=== PATIENT | female | born 1965 | race Caucasian/White ===

== ENCOUNTER → 2019-09-18 12:38 | Outpatient (CLI) | payer OTHER, SELFPAY ==
--- NOTE | ~2019-09-18 | XR_ITS ---
XR abdomen/kub 1V 09/18/2019 13:20 Indication: Kidney stones Procedure: KUB Comparison: 08/29/2019 Findings: Large amount of retained fecal material in the colon limits evaluation for renal stones. No definite renal tone is identified. There are calcifications in the right pelvis suspicious for dista l ureteral or bladder stones. Mild lumbar spondylosis. No acute osseous abnormality. Impression: 1: New calcifications in the right pelvis, suspicious for distal ureteral or bladder stones. Consider correlation with CT. Reviewed, dictated and finalized at location A. . [employer]RO[employer] PROC[employer]OR Impression: 1: New calcifications in the right pelvis, suspicious for distal ureteral or bl adder stones. Consider correlation with CT.
== END ==
PROVIDERS: PCP Family Medicine; Visit Provider Urology
DX: N20.0 Calculus of kidney (principal)
CPT/HCPCS: 74018

== ENCOUNTER → 2019-10-09 17:10 | Outpatient (CLI) | payer OTHER, SELFPAY ==
--- NOTE | ~2019-10-09 | XR_ITS ---
XR abdomen/kub 1V 10/09/2019 17:55 Indication: Right ureteral stone Procedure: KUB Comparison: Comparison to multiple prior studies sequentially, with oldest reviewed study dated 10/2013. Findings: Bowel gas pattern is nonobstructive. Moderate colonic fecal loading. No acute osseous abnor mality. No calcifications are identified to suggest renal/ureteral stone. Impression: 1: No evidence for renal/ureteral stone. Reviewed, dictated and finalized at location A. ATAL SPECIALIST Impression: 1: No evidence for renal/ureteral stone.
== END ==
PROVIDERS: Visit Provider Nurse Practitioner Adult Health
DX: N20.1 Calculus of ureter (principal)
CPT/HCPCS: 74018

== ENCOUNTER → 2020-04-09 11:03 | Outpatient (CLI) | payer OTHER, SELFPAY ==
--- NOTE | ~2020-04-09 | XR_ITS ---
EXAMINATION: XR abdomen/kub 1V INDICATION: Right ureteral stone TECHNIQUE: Supine views of the abdomen were obtained on 2 radiographs. COMPARISON: 10/09/2019 FINDINGS: No urolithiasis is identified. The bowel gas pattern is normal. There is mild osteoarthriti s of the hips. IMPRESSION: 1. No urolithiasis identified. Reviewed, dictated and finalized at location A.
== END ==
PROVIDERS: PCP Family Medicine; Visit Provider Nurse Practitioner Adult Health
DX: N20.1 Calculus of ureter (principal)
CPT/HCPCS: 74018

== ENCOUNTER 2021-05-15 13:56 | Emergency (ER) | payer OTHER, SELFPAY ==
--- NOTE | ~2021-05-15 | XR_ITS ---
EXAMINATION: XR ankle RT min 3V EXAM DATE: 05/15/2021 14:17 INDICATION: Fall right lateral ankle pain/swelling. Initial encounter. TECHNIQUE: Right ankle frontal, lateral and oblique projections obtained and reviewed. There is no p rior study for comparison. FINDINGS: The right ankle mortise appears intact. There are no acute fractures or dislocations iden tified. There is no subcutaneous gas. There is an ankle joint effusion. There are no radiopaque fo reign bodies. IMPRESSION: Right ankle joint effusion. Reviewed, dictated and finalized at location A. IMPRESSION: Right ankle joint effusion.
[2021-05-15 14:04] VITALS: BP 109/66; PULSE 84; RESP 16; TEMP 37; O2SAT 99
--- NOTE | 2021-05-15 14:19 | ED.GENADULT ---
HPI - General Adult General Chief complaint: Extremity Injury, Lower Stated complaint: rt ankle injury Time Seen by Provider: 05/15/21 14:19 Source: patient Mode of arrival: ambulatory Limitations: no limitations History of Present Illness HPI narrative: 55-year-old female patient presents to the [facility] with complaints of right ankle pain. Patient states she tripped down some steps yesterday afternoon. Patient states she has been having pain on the lateral side of her right ankle. Patient states she has been elevating it, icing it and taking Tylenol for pain. Denies wrapping it. Denies any numbness or tingling to the toes. Patient states she has been walking on it but has been painful. Related Data Home Medications Medication Instructions Recorded Confirmed estradiol [Vivelle-Dot] 0.0375 mg TRANSDERMAL 2XW 08/21/19 08/29/19 omeprazole 40 mg PO DAILY 08/21/19 08/29/19 Cholest Off 900 mg PO BID 08/26/19 08/26/19 ezetimibe mg 05/15/21 Allergies Allergy/AdvReac Type Severity Reaction Status Date / Time amoxicillin Allergy Unknown RASH/HIVES Verified 05/15/21 14:03 Review of Systems Review of Systems: CONSTITUTIONAL: Denies fever, chills, or sweats. EYES: Denies visual changes, redness, or discharge. ENT: Denies rhinorrhea, congestion, sore throat, or otalgia. CARDIOVASCULAR: Denies chest pain, palpitations, or edema. RESPIRATORY: Denies cough or dyspnea. GASTROINTESTINAL: Denies abdominal pain, nausea, vomiting, or diarrhea. GENITOURINARY: Denies dysuria or hematuria. SKIN: Denies rash or itching. MUSCULOSKELETAL: Denies back pain, joint pain, or myalgia. Positive right ankle pain NEUROLOGIC: Denies headache, numbness, or weakness. PSYCHIATRIC: Denies anxiety or depression. [facility] Past Medical History Medical History Hyperlipidemia Kidney stones Migraine Surgical History Surgical History History of hysterectomy Social History Social History Smoking status: Never smoker Gender identity (if verbalized by the patient): Female Comments At the time of my signature I agree with nursing past medical history, surgical, social, and family history. There is no relevant family history pertinent to the presenting complaint. Exam Narrative: GENERAL: Well-appearing, well-nourished, and in no acute distress. HEAD: Normocephalic, atraumatic. EYES: PERRLA and EOMI. ENT: Nares clear, no rhinorrhea or epistaxis. Mucous membranes moist. NECK: Supple. No lymphadenopathy CHEST: Clear to auscultation. No respiratory distress. HEART: Regular rate and rhythm. No murmur heard. Normal peripheral pulses. ABDOMEN: Soft, nontender, nondistended, normal active bowel sounds. EXTREMITIES: Patient is able to bear weight and ambulate with pain. The R ankle is without obvious asymmetry or deformity when compared to the L ankle. Patient can flex/extend, invert/janet. No obvious surface trauma, ecchymosis, positive soft tissue swelling over the lateral side of ankle. Bony tenderness to palpation over the lateral malleolus. Anterior talofibular ligament, posterior talofibular ligament, calcaneofibular ligament nontender and without swelling. No tenderness or deformity of the midfoot or over the proximal fifth metatarsal. Good DP and posterior tibial pulses and sensation to light touch normal. Talar tilt test is negative for ligament laxity to valgus or vargus stress. Negative anterior draw. Peroneal nerve is intact with strong eversion and plantar flexion. SKIN: Warm, dry, no rash. NEURO: No focal deficits. Alert and oriented x3. Course Reevaluation(s) Reevaluation #1: Notify patient that her x-ray is negative for any acute fractures or injuries. Discussed with her that she does have a little bit of effusion around the ankle joint which is just an accumulation of fluid most likel
== END 2021-05-15 14:30 | disposition home or self-care (01) ==
PROVIDERS: Emergency Provider Nurse Practitioner Family; PCP Family Medicine
DX: M25.471 Effusion, right ankle (principal); S93.401A Sprain of unspecified ligament of right ankle, initial encounter; X50.9XXA Other and unspecified overexertion or strenuous movements or postures, initial encounter; E78.5 Hyperlipidemia, unspecified
CPT/HCPCS: 73610; 99213; G0463

== ENCOUNTER 2024-10-17 15:11 | Outpatient (CLI) | payer OTHER, SELFPAY | END 2024-10-17 15:12 | disposition home or self-care (01) | LOC: GOSHIMG 15:11 | PROVIDERS: PCP Family Medicine; Visit Provider Family Medicine | DX: R22.42 Localized swelling, mass and lump, left lower limb (principal) | CPT/HCPCS: 76882 ==